=== PATIENT | male | born 1935 | race Caucasian/White ===

== ENCOUNTER 2019-12-29 10:44 | Emergency (ER) | payer MEDICARE, SELFPAY ==
[2019-12-29 10:54] VITALS: BP 144/59; PULSE 81; RESP 14; TEMP 36.9; O2SAT 98
--- NOTE | 2019-12-29 10:55 | ED.EAR ---
HPI - Ear Problem General Stated complaint: right ear can't hear Time Seen by Provider: 12/29/19 10:55 Source: patient and RN notes reviewed History of Present Illness HPI Narrative: Patient is an 84-year-old male who presents the urgent care with complaints of decreased hearing in the right ear for the last 2 days. Patient denies of any pain, drainage, upper respiratory symptoms. Patient has not done anything [id number] for his symptoms. No other acute complaints. No acute distress noted. Patient read the plan of care. Related Data Allergies Allergy/AdvReac Type Severity Reaction Status Date / Time No Known Allergies Allergy Verified 12/29/19 11:00 Review of Systems Review of Systems: Narrative: CONSTITUTIONAL: Denies fever, chills, or sweats. EYES: Denies visual changes, redness, or discharge. ENT: Reports of decreased hearing in the right CARDIOVASCULAR: Denies chest pain, palpitations, or edema. RESPIRATORY: Denies cough or dyspnea. GASTROINTESTINAL: Denies abdominal pain, nausea, vomiting, or diarrhea. GENITOURINARY: Denies dysuria or hematuria. SKIN: Denies rash or itching. MUSCULOSKELETAL: Denies back pain, joint pain, or myalgia. NEUROLOGIC: Denies headache, numbness, or weakness. All other systems reviewed are negative, except as documented in HPI. PMFSH Comments At the time of my signature, I reviewed and agree with the nursing past medical, surgical, social, and family history. There is no relevant family history pertinent to the patient complaint. Exam Narrative: Exam Narrative: GENERAL: This is a well-nourished, well-developed patient, in no apparent distress. HEAD: normocephalic, atraumatic. EYES: PERRL. Sclera clear/white. Vision is grossly intact. EARS: External ears normal, auditory canals clear and without drainage, left TMs normal without perforation. Unable to visualize right TM due to cerumen impaction NOSE: External nose normal with no obvious nasal discharge, nares without redness, no rhinorrhea. THROAT: Mucous membranes moist NECK: Neck supple SKIN: warm, intact with no suspicious lesions or rash, good texture and turgor. NEURO: awake, alert, and oriented to person, place and time. There were no obvious focal neurologic abnormalities. EXTREMITIES: No clubbing, cyanosis, or edema Course Vital Signs Vital signs: Vital Signs Temperature 98.5 F 12/29/19 10:54 Pulse Rate 81 12/29/19 10:54 Respiratory Rate 14 12/29/19 10:54 Blood Pressure 144/59 H 12/29/19 10:54 Pulse Oximetry 98 12/29/19 10:54 Temperature 98.5 F 12/29/19 10:54 Pulse Rate 81 12/29/19 10:54 Respiratory Rate 14 12/29/19 10:54 Blood Pressure 144/59 H 12/29/19 10:54 Pulse Oximetry 98 12/29/19 10:54 Reviewed?patient is informed that they may have pre-hypertension or hypertension based on a blood pressure reading in the department. I recommend the patient call the primary care provider listed on their discharge instructions or a physician of their choice this week to arrange follow-up for further evaluation of possible pre-hypertension or hypertension. Procedures Ear Wax Removal Right Ear: Cerumenolytic Used: other (Lighted curette) Results: Re-examined: cerumen removed completely TM Examination: TM(s) intact, normal appearance Patient Tolerated Procedure: well and no complications Complications: no problems Additional Comments: Cerumen removed from right ear canal with lighted curette. Patient tolerated well with no complications. No foreign body removed other than cerumen impaction. TM intact and within normal limits. Hearing improved Medical Decision Making MDM Narrative Medical decision making narrative: Advised the patient to use Debrox to the right ear for the next 4 days with a warm wash rag over the outside of the ear to initiate drainage. Do not put anything else in the ear such as Q-tips, peroxide, water. If you develop any increase symptoms associ
== END 2019-12-29 11:09 | disposition home or self-care (01) ==
PROVIDERS: Emergency Provider Nurse Practitioner Family
DX: H61.21 Impacted cerumen, right ear (principal); M19.90 Unspecified osteoarthritis, unspecified site
CPT/HCPCS: 69210; 99213; G0463